=== PATIENT | male | born 1970 | race African-American/Black ===

== ENCOUNTER 2017-01-04 23:08 | Emergency (ER) | payer MEDICAID, OTHER ==
[~2017-01-04] VITALS: Ht 188 cm; Wt 120.5 kg
[2017-01-04 23:15] VITALS: Ht 188 cm; Wt 120.5 kg
--- NOTE | 2017-01-04 23:29 | ERA ---
ER Documentation Chief Complaint Date/Time DATE: 01/04/17 TIME: 23:29 Chief Complaint BIB RA S/P METH USE, C/O ANXIETY AND PARANOIA HPI The patient is a 46-year-old male, presenting to the ER because he is paranoid after using methamphetamine yesterday. He is awake, alert, able to answer question appropriately, denies homicidal, suicidal ideation. He denies any headache, neck pain, chest pain, abdominal pain, vomiting, dysuria, diarrhea, constipation. He has similar symptoms previously when he did amphetamine. He also smoke marijuana, denies drinking, smokes cigarettes Past medical history/surgical history: None ROS All systems reviewed and are negative except as per history of present illness. Medications Home Meds No Active Prescriptions or Reported Meds Allergies Allergies: Coded Allergies: No Known Allergies (Unverified Allergy, Unknown, 01/04/17) PMhx/Soc History of Surgery: Yes (LYPOMA) Anesthesia Reaction: No Hx Neurological Disorder: No Hx Respiratory Disorders: No Hx Cardiac Disorders: No Hx Psychiatric Problems: No Hx Miscellaneous Medical Probl: No Hx Alcohol Use: Yes Hx Substance Use: Yes Hx Tobacco Use: Yes Smoking Status: Current some day smoker Physical Exam Vitals Vital Signs Date Time Temp Pulse Resp B/P Pulse Ox O2 Delivery O2 Flow Rate FiO2 01/04/17 23:15 99.0 141 29 192/125 99 Physical Exam Const: No acute distress. Head: Atraumatic. Eyes: Normal Conjunctiva. ENT: Normal External Ears, Nose and Mouth. Neck: Full range of motion. No meningismus. Resp: Clear to auscultation bilaterally. Cardio: Regular but tachycardic Abd: Soft, non distended, normal bowel sounds, non tender. Skin: No petechiae or rashes. Back: No midline or flank tenderness. Ext: No cyanosis, or edema. Neur: Awake and alert. No focal deficit Psych: Normal Mood and Affect. Result Diagram: 01/04/17 3451 01/04/17 2351 Results 24 hrs Laboratory Tests Test 01/04/17 23:51 01/05/17 04:07 White Blood Count 19.010^3/ul Red Blood Count 4.8010^6/ul Hemoglobin 14.6g/dl Hematocrit 43.8% Mean Corpuscular Volume 91.3fl Mean Corpuscular Hemoglobin 30.4pg Mean Corpuscular Hemoglobin Concent 33.3g/dl Red Cell Distribution Width 12.9% Platelet Count 89302^3/UL Mean Platelet Volume 11.3fl Neutrophils % 83.3% Lymphocytes % 8.9% Monocytes % 6.7% Eosinophils % 0.1% Basophils % 0.4% Nucleated Red Blood Cells % 0.0/100WBC Neutrophils # 15.910^3/ul Lymphocytes # 1.710^3/ul Monocytes # 1.310^3/ul Eosinophils # 0.010^3/ul Basophils # 0.110^3/ul Nucleated Red Blood Cells # 0.010^3/ul Prothrombin Time 12.8Sec Prothrombin Time Ratio 1.0 INR International Normalized Ratio 0.96 Activated Partial Thromboplast Time 23.7Sec Sodium Level 140mmol/L Potassium Level 4.6mmol/L Chloride Level 100mmol/L Carbon Dioxide Level 23mmol/L Anion Gap 22 Blood Urea Nitrogen 23mg/dl Creatinine 1.84mg/dl Glucose Level 147mg/dl Calcium Level 10.5mg/dl Total Bilirubin 0.7mg/dl Direct Bilirubin 0.00mg/dl Indirect Bilirubin 0.7mg/dl Aspartate Amino Transf (AST/SGOT) 43IU/L Alanine Aminotransferase (ALT/SGPT) 38IU/L Alkaline Phosphatase 69IU/L Total Protein 8.7g/dl Albumin 5.6g/dl Globulin 3.10g/dl Albumin/Globulin Ratio 1.80 Lipase 65U/L Ethyl Alcohol Level < 10.0mg/dl Bedside Urine pH (LAB) 6.0 Bedside Urine Protein (LAB) 1+ Bedside Urine Glucose (UA) Negative Bedside Urine Ketones (LAB) Negative Bedside Urine Blood 1+ Bedside Urine Nitrite (LAB) Negative Bedside Urine Leukocyte Esterase (L Negative Current Medications Medications (Trade) Dose Ordered Sig/Kory Route PRN Reason Start Time Stop Time Status Last Admin Dose Admin Sodium Chloride 1,000 ml @ 1,000 mls/hr Q1H STAT IV 01/04/17 23:40 01/05/17 00:39 DC 01/05/17 00:00 Sodium Chloride (NS) 1,000 ml @ 1,000 mls/hr Q1H ONCE IV 01/05/17 00:00 01/05/17 00:59 DC 01/05/17 00:00 Lorazepam (Ativan) 1 mg ONCE ONCE IV 01/05/17 00:30 01/05/17 00:31 DC 01/05/17 01:48 Procedures/MDM [place] [id number] Radiology Main Line: [phone] DIAGNOSTIC IMAGING REPORT Patient: SUJIT CARRILLO : 1970 Age: 46 Sex: M MR #: [id number] DOS: 01/05/17 0235 Ordering MD: LUCIA DRISCOLL MD Location: E/R Room/Bed: PROCEDURE: XR Chest. CLINICAL INDICATION: Cough TECHNIQUE: Single frontal view of the chest was obtained COMPARISON: None FINDINGS: The heart and mediastinum are within normal limits. The lungs are clear. There is no pleural effusion or pneumothorax. ECG leads projected over the chest. IMPRESSION: No acute disease. RPTAT: HJES .Bebeto Hollins MD, MD Date Time Electronically viewed and signed by .Bebeto Hollins MD, MD on 01/05/2017 02:58 .S/ CC: LUCIA DRISCOLL MD MEDICAL MAKING DECISION: The patient is a 46-year-old male, presenting to the ER because of acute vitamin abuse, acute anxiety, acute dehydration. He was treated with 2 L normal saline for acute dehydration, Ativan 1 mg IV for acute anxiety and clonidine 0.2 to tachycardia and hypertension with good response The differential diagnoses considered include but are not limited to drug- induced psychosis, psychosis, anxiety attack, panic attack. Leukocytosis of unclear etiology, most likely due to margination Departure Diagnosis: Primary Impression: Amphetamine abuse Additional Impressions: Anxiety attack Dehydration Leukocytosis Renal insufficiency Condition: Stable Comments The patient is resting well. He is going to be discharged and advised to follow -up with his physician tomorrow for further evaluation and return if any concern The patient's blood pressure was elevated (>120/80) but appears stable without evidence of hypertension emergency or urgency. The patient was counseled about the risks of hypertension and urged to pursue outpatient monitoring and therapy within a week with their primary care physician. LUCIA DRISCOLL MD Jan 04, 2017 23:29
[2017-01-04] MEDS ORDERED: SOD CHLORIDE 0.9% 1,000 ML IV STA (23:40)
[2017-01-05] MEDS ORDERED: SOD CHLORIDE 0.9% 1,000 ML IV ONE
[2017-01-05 00:03] LABS: ADD SCAN DIFF NO
[2017-01-05 00:07] LABS: BASOPHIL # 0.1 10^3/ul (0.0-0.1); BASOPHILS % 0.4 % (0.0-2.0); EOSINOPHILS % 0.1 % (0.0-7.0); HEMATOCRIT 43.8 % (42.0-52.0); HEMOGLOBIN 14.6 g/dl (14.0-18.0); LYMPHOCYTES # 1.7 10^3/ul (0.8-2.9); LYMPHOCYTES % 8.9 % (15.0-51.0); MEAN CORPUSCULAR HEMOGLOBIN 30.4 pg (29.0-33.0); MEAN CORPUSCULAR HGB CONC 33.3 g/dl (32.0-37.0); MEAN CORPUSCULAR VOLUME 91.3 fl (82.0-101.0); MEAN PLATELET VOLUME 11.3 fl (7.4-10.4); MONOCYTE # 1.3 10^3/ul (0.3-0.9); MONOCYTES % 6.7 % (0.0-11.0); NEUTROPHIL # 15.9 10^3/ul (1.6-7.5); NEUTROPHILS % 83.3 % (39.0-77.0); PLATELET COUNT 270 10^3/UL (140-415); RED CELL DISTRIBUTION WIDTH 12.9 % (11.5-14.5)
[2017-01-05 00:22] LABS: INR 0.96; PARTIAL THROMBOPLASTIN TIME 23.7 Sec (25.0-35.0); PROTIME 12.8 Sec (12.2-14.2)
[2017-01-05] MEDS ORDERED: LORAZEPAM 2 MG INJ IV ONE (00:30)
[2017-01-05 00:41] LABS: ALANINE AMINOTRANSFERASE 38 IU/L (13-69); ALBUMIN 5.6 g/dl (3.3-4.9); ALKALINE PHOSPHATASE 69 IU/L (42-121); ANION GAP 22 (8-16); ASPARTATE AMINO TRANSFERASE 43 IU/L (15-46); BILIRUBIN,INDIRECT 0.7 mg/dl (0-1.1); BILIRUBIN,TOTAL 0.7 mg/dl (0.2-1.3); BLOOD UREA NITROGEN 23 mg/dl (7-20); CALCIUM 10.5 mg/dl (8.4-10.2); CARBON DIOXIDE 23 mmol/L (21-31); CHLORIDE 100 mmol/L (97-110); CREATININE 1.84 mg/dl (0.61-1.24); GLUCOSE 147 mg/dl (70-220); POTASSIUM 4.6 mmol/L (3.5-5.1); SODIUM 140 mmol/L (135-144); TOTAL PROTEIN 8.7 g/dl (6.1-8.1)
[2017-01-05 00:43] LABS: ETHANOL < 10.0 mg/dl
--- NOTE | 2017-01-05 02:58 | RADRPT ---
PROCEDURE: XR Chest. CLINICAL INDICATION: Cough TECHNIQUE: Single frontal view of the chest was obtained COMPARISON: None FINDINGS: The heart and mediastinum are within normal limits. The lungs are clear. There is no pleural effusion or pneumothorax. ECG leads projected over the chest. IMPRESSION: No acute disease. RPTAT: HJES .Bebeto Hollins MD, MD Date Time Electronically viewed and signed by .Bebeto Hollins MD, MD on 01/05/2017 02:58 .S/
[2017-01-05 04:05] LABS: URINE BLOOD (Dip) POC 1+ (NEGATIVE)
[2017-01-05 06:23] VITALS: BP 180/94; PULSE 110; RESP 18
== END 2017-01-05 06:24 | disposition home or self-care (01) ==
LOC: E/R 23:08
DX: F15.10 Other stimulant abuse, uncomplicated (principal); F41.9 Anxiety disorder, unspecified; E86.0 Dehydration; D72.829 Elevated white blood cell count, unspecified; N28.9 Disorder of kidney and ureter, unspecified; F17.210 Nicotine dependence, cigarettes, uncomplicated; R07.9 Chest pain, unspecified
CPT/HCPCS: 71010; 80053; 80306; 81003; 83690; 85025; 85610; 85730; J2060; J7030; Z7610; 96374